=== PATIENT | female | born 1935 | race African-American/Black ===

== ENCOUNTER 2017-01-08 13:48 | Emergency (ER) | payer MEDICAID ==
[2017-01-08 14:56] VITALS: BP 107/57
--- NOTE | 2017-01-08 17:55 | Emergency Department Report ---
HPI - General Chief Complaint: Extremity Injury, Lower Time Seen by Provider: 01/08/17 17:43 - HPI HPI: Patient is a 81-year-old female brought in by daughter states in mother's foot pain 2 weeks. Patient states on December she stubbed her foot and had a fracture. Patient was seen by primary care doctor who sent her to radiologist office where she got an x-ray on January 04/2017. The x-ray report shows fracture of the head of the fifth right toe. She brought a report from the radiologist office and a CD Patient states she was was a follow-up with orthopedic blood clotted up in the office and states she might not be seen to take effect The office does not take Medicaid. Patient's daughter states mother is out of medication does not have any pain medication and reports having pain intermittently. Patient denies fevers/chills/nausea/vomiting/abdominal pain or any other problems other than the foot pain. ED Past Medical Hx - Past Medical History Hx Renal Disease: Yes - Surgical History Past Surgical History?: No - Social History Smoking Status: Never Smoker Substance Use Type: None - Medications Home Medications: Home Medications Medication Instructions Recorded Confirmed Last Taken Type Docusate Sodium [Colace] 100 mg PO BID PRN #20 capsule 01/08/17 Unknown Rx HYDROcodone/APAP 5-325 [[place] 1 each PO Q6HR PRN #20 tablet 01/08/17 Unknown Rx 5-325 mg TAB] ED Review of Systems ROS: Stated complaint: FRACTURE ON RIGHT FOOT Other details as noted in HPI Constitutional: denies: chills, fever Eyes: denies: eye pain, eye discharge, vision change ENT: denies: ear pain, throat pain Respiratory: denies: cough, shortness of breath, wheezing Cardiovascular: denies: chest pain, palpitations Endocrine: no symptoms reported Gastrointestinal: denies: abdominal pain, nausea, vomiting, diarrhea Genitourinary: denies: urgency, dysuria, discharge Musculoskeletal: arthralgia. denies: back pain, joint swelling Skin: denies: rash, lesions Neurological: denies: headache, weakness, numbness, paresthesias, confusion Psychiatric: denies: anxiety, depression Hematological/Lymphatic: denies: easy bleeding, easy bruising Physical Exam - Physical Exam Vital Signs: Vital Signs 01/08/17 14:52 Temperature 98.5 F Pulse Rate 84 Respiratory 16 Rate Blood Pressure 107/57 O2 Sat by Pulse 98 Oximetry Physical Exam: GENERAL: Alert and oriented x3, no apparent distress, wheel chair, atraumatic. HEAD: Head is normocephalic and a-traumatic. EYES: Extra ocular muscles are intact. Pupils are equal, round, and reactive to light and accommodation. EARS: symetrical, atraumatic. gross auditory nml bilaterally. NOSE: Nose symetrical, Nontender,Nares appeared normal. MOUTH:Mouth is well hydrated and without lesions. Tonsils nonerythematous or swollen, NECK: Supple. Non edematous, No carotid bruits. No lymphadenopathy or thyromegaly. LUNGS: Symetrical with respiration, No wheezing, no rales or crackles, CTAB. HEART: S1, S2 present, regular rate and rhythm without murmur, no rubs, no gallops. ABDOMEN: No organomegaly was noted,Positive bowel sounds, soft, and non- distended. . Nontender to palpation on all Quadrants, NO CVA tenderness. EXTREMITIES/MUSCULOSKELETAL: No cyanosis, clubbing, rash, lesions or edema. Full ROM bilaterally. UE/LE Pulses 2+ bilaterally. Tenderness to palpation of the fifth metatarsal bone. Mild ecchymosis noticed on fourth and fifth digit. No open fractures or dislocations visualized. Tenderness to wait. Known lateral aspect of right foot. Pedal pulses present. NEUROLOGIC: No focal Deficit, Cranial nerves II through XII are grossly intact. No loss of sensation, PSYCHIATRIC: Mood is congruent with affect, denies suicidal or homicidal ideations. SKIN: Warm and dry, No lesions, No ulceration or induration present. ED Course Vital Signs 01/08/17 14:52 Temperature 98.5 F Pulse Rate 84 Respiratory 16 Rate Blood Pressure 107/57 O2 Sat by Pulse 98 Oximetry ED Medical Decision Making - Medical Decision Making 81-year-old female presents for subsequent encounter for her fractured fifth metatarsal head ED course: Patient received 1 tablet of Tylenol 3. Vital signs stable. Patient is in no acute or respiratory distress. Discussed patient to make an appointment and follow-up with orthopedic. Discussed patient numerous orthopedic referral is given intensive call all referrals given to follow-up. Discuss with patient home on pain medication as well as postop shoe. Discuss RICE therapy with patient. Patient's daughter states she understands and will call the referrals given to take her mom to follow up with an orthopedic doctor. Critical care attestation.: If time is entered above; I have spent that time in minutes in the direct care of this critically ill patient, excluding procedure time. ED Disposition Clinical Impression: Fracture of toe with routine healing Qualifiers: Encounter type: subsequent encounter Toe: lesser toe Fracture type: closed Phalanx: proximal Fracture alignment: nondisplaced Laterality: right Qualified Code(s): S92.514D - Nondisplaced fracture of proximal phalanx of right lesser toe(s), subsequent encounter for fracture with routine healing Disposition: DISCHARGED TO HOME OR SELFCARE Is pt being admited?: No Does the pt Need Aspirin: No Condition: Stable Instructions: Toe Fracture (ED), Heat Pack Application (ED), RICE Therapy (ED) Additional Instructions: Follow-up with orthopedic doctor. Take medication as prescribed. Rest foot. Ice foot. keep elevated Prescriptions: Docusate Sodium [Colace] 100 mg PO BID PRN #20 capsule PRN Reason: Constipation HYDROcodone/APAP 5-325 [[place] 5-325 mg TAB] 1 each PO Q6HR PRN #20 tablet PRN Reason: Pain Referrals: PRIMARY CARE, [Primary Care Provider] - 3-5 Days [facility] [Outside] - 3-5 Days CAPRI WEEMS MD [Staff Physician] - 3-5 Days YAHAIRA HARRISON DPM [Staff Physician] - 3-5 Days THELMA VALERO DPM [Staff Physician] - 3-5 Days SAMARIA WOLFF MD [Staff Physician] - 3-5 Days JAMAR ISLAS DPM [Staff Physician] - 3-5 Days CONCETTA COPE MD [Staff Physician] - 3-5 Days Forms: Accompanied Note Time of Disposition: 18:02
[2017-01-08] MEDS ORDERED: TYLENOL #3 PO ONE (18:00)
== END 2017-01-08 18:22 | disposition home or self-care (01) ==
LOC: ED 13:48
DX: S92.514D Nondisplaced fracture of proximal phalanx of right lesser toe(s), subsequent encounter for fracture with routine healing (principal); X58.XXXA Exposure to other specified factors, initial encounter; Y93.89 Activity, other specified; Y99.9 Unspecified external cause status; Y92.89 Other specified places as the place of occurrence of the external cause
CPT/HCPCS: 99283